=== PATIENT | female | born 2000 | race Caucasian/White ===

== ENCOUNTER 2024-02-29 19:21 | Inpatient (IN) ==
[2024-02-29] MEDS: SODIUM CHLORIDE 0.9% 1,000 ML IV STA (19:34)
[2024-02-29] MEDS: KETOROLAC TROMETHAMINE 15 MG/ML VIAL IV STA (20:30)
[2024-02-29] MEDS: MoRPHine SULFATE 4 MG/ML 1 ML CARP\\VIAL IV STA ×2 (20:30→21:30)
[2024-02-29] MEDS: ONDANSETRON INJ 2 MG/ML 2 ML VIAL IV STA (20:30)
[2024-02-29 20:32] LABS: Basophils # (auto) 0.06 K/uL (0.00-0.20); Basophils % (auto) 0.4 %; Eosinophils # (auto) 0.03 K/uL (0.00-0.50); Eosinophils % (auto) 0.2 %; Hematocrit (blood only) 40.9 % (37.0-47.0); Hemoglobin 13.9 g/dl (12.0-16.0); Immature Granulocytes # (auto) 0.06 K/uL (0.01-0.20); Immature Granulocytes % (auto) 0.4 %; Lymphocytes # (auto) 3.27 K/uL (1.20-3.40); Lymphocytes % (auto) 20.3 %; Mean Corpuscular Hemoglobin 30.4 pg (25.0-34.0); Mean Corpuscular Volume 89.5 fL (80.0-100.0); Mean Platelet Volume 10.5 fL (9.4-12.4); Monocytes # (auto) 1.06 K/uL (0.11-0.59); Monocytes % (auto) 6.6 %; Neutrophils # (auto) 11.62 K/uL (1.40-6.50); Neutrophils % (auto) 72.1 %; Platelet Count 391 K/uL (130-400); RDW Coefficient of Variation 12.1 % (11.5-14.5); RDW Standard Deviation 39.6 fL (36.4-46.3); Red Blood Count 4.57 M/uL (4.20-5.40)
--- NOTE | 2024-02-29 20:34 | Emergency Department Note ---
History of Present Illness General Chief complaint: Kidney Stone Stated complaint: KIDNEY STONE, LT FLANK/BACK PAIN Time Seen by Provider: 02/29/24 20:11 History of Present Illness Maximum Pain Intensity: 7 NAME: KYA VEGAS AGE: 23 SEX: F : 2000 ARRIVES VIA: Walk-In INFORMANT: Patient ED PROVIDER(S): CORNELIUS Marte, Vaughn Brown, The patient is a pleasant well-appearing 23-year-old female who arrives to the emergency department for evaluation of left flank pain. She reports Thursday she felt as if she had a UTI with painful urination. She reports she went to her doctor, and was provided Macrobid and Pyridium. She reports she began taking the medications, however today the flank pain worsened. She states she does have a history of kidney stones, and believes she is attempting to pass 1 at this time. She reports the pain went from her left flank into her low back and radiated into her left groin. She denies any vomiting or fevers, her vital signs are currently stable. Home Medications Medication Instructions Recorded Confirmed Type albuterol sulfate 90 mcg/actuation 2 inh inhalation Q6H PRN 06/30/23 08/13/23 History breath activated powder inhaler escitalopram oxalate 10 mg tablet 10 mg PO DAILY 06/30/23 08/13/23 History levonorgestrel 21 mcg/24 hr (up to intrauterine 06/30/23 08/13/23 History 8 years) 52 mg intrauterine device (Mirena) Allergies Allergy/AdvReac Type Severity Reaction Status Date / Time No Known Allergies Allergy Verified 08/13/23 07:21 Past Med/Surg History Problem List (Updated 02/29/24 @ 23:25 by CORNELIUS Covarrubias) Urinary tract obstruction by kidney stone (Acute) Hydroureteronephrosis (Acute) UTI (urinary tract infection) (Acute) JOSIAH positive Medical History Anxiety PCOS (polycystic ovarian syndrome) Renal calculi Celiac disease Surgical History Ovarian torsion History of bilateral breast reduction surgery Family History Other Nabil-Danlos syndrome Social History Smoking Status: Never smoker Preferred Language: Irish Feels Safe at Home: Yes Physical Exam Vital Signs Vital Signs - 24 hr 02/29/24 19:27 02/29/24 20:51 02/29/24 21:35 Temperature 36.3 C L Temperature Source Temporal Artery Scan Pulse Rate 93 H 81 Pulse Rate [Right Finger] 93 H Pulse Rhythm Regular Pulse Rhythm [Right Finger] Regular Pulse Strength [Right Finger] Normal Respiratory Rate 18 18 Respiratory Effort / Characteristics Non-Labored Spontaneous Non-Labored Respiratory Depth Normal Normal Respiratory Pattern Regular Regular Blood Pressure 154/88 H Blood Pressure [Right Arm] 142/96 H Blood Pressure Mean 110 Blood Pressure Mean [Right Arm] 111 Blood Pressure Position [Right Arm] Sitting Pulse Oximetry 95 98 98 Oxygen Delivery Method Room Air Room Air Room Air Sepsis Recent Fever Within 48 Hours No Sepsis New/Unexplained Change in Mental Status No Sepsis Action Taken by Nursing No Action Required VITALS: Vitals are noted on the nurse's note and reviewed by myself. Vital signs stable. GENERAL: 23-year-old female, in no acute distress, nondiaphoretic, well- developed well-nourished. SKIN: The skin was without rashes, erythema, edema, or bruising. HEAD: Normocephalic atraumatic. HEART: Regular rate and rhythm without murmurs gallops or rubs. LUNGS: Clear to auscultation bilaterally without wheezes, rales or rhonchi. No retractions or accessory muscle use. ABDOMEN: Positive bowel sounds x 4. Soft, tender to palpation left lower quadrant, left CVA tenderness. MUSCULOSKELETAL: No muscle atrophy, erythema, or edema noted. Full range of motion without joint tenderness in all extremities. No tenderness to palpation. Normal gait. Strength 5/5 throughout. NEURO: Patient was alert and oriented to person place and time. No focal neurological deficits. Course Administered Medications Ceftriaxone Sodium (Rocephin) 1,000 mg in 50 mls @ 100 mls/hr IV NOW STA Stop: 02/29/24 23:24 Last Admin: 02/29/24 23:03 Dose: 100 mls/hr Documented By: KMF Discontinued Medications Sodium Chloride (Nss) 1,000 mls @ 999 mls/hr IV .Q1H1M STA Stop: 02/29/24 21:14 Last Infusion: 02/29/24 20:34 Dose: Infused [place] [facility] [place]: 02/29/24 19:34 Dose: 999 mls/hr [place]ed [place] [facility] [place] Sodium Chloride (Nss) 1,000 mls @ 999 mls/hr IV .Q1H1M ONE Stop: 02/29/24 21:22 Last Infusion: 02/29/24 21:46 Dose: Infused [place] [facility] [place]: 02/29/24 20:37 Dose: 999 mls/hr [place]ed By[place] [facility] [place] Ioversol (Optiray 320 100ml) 93 ml IV ONCE ONE Stop: 02/29/24 21:16 Last Admin: 02/29/24 21:16 Dose: 93 ml Documented By: Celeste Ketorolac Tromethamine (Ketorolac Tromethamine 15 Mg/Ml Vial) 10 mg IV NOW STA Stop: 02/29/24 20:15 Last Admin: 02/29/24 20:30 Dose: 10 mg [place]ed By[place] [facility] [place]ine Sulfate (Morphine Sulfate 4 Mg/Ml 1 Ml Carp\Vial) 4 mg IV NOW STA Stop: 02/29/24 20:22 Last Admin: 02/29/24 20:30 Dose: 4 mg [place]ed [place] [facility] [place]ine Sulfate (Morphine Sulfate 4 Mg/Ml 1 Ml Carp\Vial) 4 mg IV NOW STA Stop: 02/29/24 21:27 Last Admin: 02/29/24 21:30 Dose: 4 mg Documented By: [facility] [place] Ondansetron HCl (Ondansetron Inj 2 Mg/Ml 2 Ml Vial) 4 mg IV NOW STA Stop: 02/29/24 20:15 Last Admin: 02/29/24 20:30 Dose: 4 mg Documented By: [facility] [place] Decision Making Differential Diagnosis Appendicitis, ovarian cyst, ovarian torsion, ectopic , TOA, PID, infections, diverticulitis, UTI, obstruction, mesenteric ischemia, aortic pathology, inflammatory bowel disease, renal colic, PUD, pancreatitis, biliary pathology, hernia, volvulus, constipation, as well as other pathologies. Medical Records Attestation: I reviewed the patient's medical records. Home Medications Current Medication List: was personally reviewed by me Laboratory Data Attestation: I reviewed the patient's lab results. CBC shows leukocytosis, 16.10, stable hemoglobin and hematocrit, CMP is unremarkable, lipase negative, hCG negative, initial urinalysis contaminated, repeat shows positive infection. 02/29/24 19:44 02/29/24 19:44 Lab Results 02/29/24 02/29/24 02/29/24 Range/Units 19:44 19:47 21:58 WBC 16.10 H (4.8-10.8) K/ul RBC 4.57 (4.20-5.40) M/uL Hgb 13.9 (12.0-16.0) g/dl Hct 40.9 (37.0-47.0) % MCV 89.5 (80.0-100.0) fL MCH 30.4 (25.0-34.0) pg MCHC 34.0 (32.0-36.0) g/dL RDW Std Deviation 39.6 (36.4-46.3) fL RDW Coeff of Cosmo 12.1 (11.5-14.5) % Plt Count 391 (130-400) K/uL MPV 10.5 (9.4-12.4) fL Immature Gran % (Auto) 0.4 % Neut % (Auto) 72.1 % Lymph % (Auto) 20.3 % [place] % (Auto) 6.6 % Eos % (Auto) 0.2 % Baso % (Auto) 0.4 % Neut # (Auto) 11.62 H (1.40-6.50) K/uL Lymph # (Auto) 3.27 (1.20-3.40) K/uL [place] # (Auto) 1.06 H (0.11-0.59) K/uL Eos # (Auto) 0.03 (0.00-0.50) K/uL Baso # (Auto) 0.06 (0.00-0.20) K/uL Immature Gran # (Auto) 0.06 (0.01-0.20) K/uL Sodium 135 L (136-145) mmol/L Potassium 4.1 (3.5-5.1) mmol/L Chloride 103 (98-107) mmol/L Carbon Dioxide 22 (21-32) mmol/L Anion Gap 10 (3-11) BUN 11 (6-23) mg/dl Creatinine 1.15 (0.6-1.2) mg/dl Est Cr Clr Drug Dosing 74.3 ml/min Est GFR ( Amer) 76.6 ml/min Est GFR (Non-Af Amer) 66.1 ml/min BUN/Creatinine Ratio 9.6 L (10-20) Glucose 93 (70-99(Fasting)) mg/dl Calcium 9.6 (8.6-10.3) mg/dl Total Bilirubin 0.2 (0.2-1.0) mg/dl AST 19 (13-39) U/L ALT 25 (7-52) U/L Alkaline Phosphatase 75 (34-104) U/L Total Protein 7.6 (6.0-8.3) gm/dl Albumin 4.5 (3.4-5.0) gm/dl Globulin 3.1 (2.5-4.0) gm/dl Albumin/Globulin Ratio 1.5 (0.9-2) Lipase 15 (11-82) U/L HCG, Qual Negative (Negative) Urine Color See Comment Dark Yellow Urine Appearance Clear Clear (Clear) Urine pH Not Reportable 6.5 Ur Specific [place] 1.020 1.025 (1.000-1.030) Urine Protein Not Reportable Negative Urine Glucose (UA) Not Reportable Negative Urine Ketones Not Reportable Trace H Urine Blood Not Reportable Trace H Urine Nitrite Not Reportable Positive A Urine Bilirubin Not Reportable Negative Urine Urobilinogen Not Reportable Negative Ur Leukocyte Esterase Not Reportable Negative Urine WBC (Auto) 0-5 (0-5) /hpf Urine RBC (Auto) 0-2 (0-2) /hpf U Hyaline Cast (Auto) 0-2 (0-2) /lpf U Epithel Cells (Auto) 0-2 (0-2) /hpf Urine Bacteria (Auto) 1+ H (None Seen) Urine RBC 11-20 H (0-2) /hpf Urine WBC 6-10 H (0-5) /hpf Ur Epithelial Cells 11-20 H (0-2) /hpf Urine Bacteria 1+ H (None Seen) Imaging Data Radiologist's Impression: Abdomen/Pelvis CT 02/29/24 20:14 Exam(s): CT ABDOMEN + PELVIS With Contrast IV Amt: 93 ML OPTIRAY 320 EXAM: CT Abdomen and Pelvis With Intravenous Contrast CLINICAL HISTORY: Reason for exam: flank pain. TECHNIQUE: Axial computed tomography images of the abdomen and pelvis with intravenous contrast. CTDI is 28.03 mGy and DLP is 1409 mGy-cm. Automated exposure control was utilized for the study. A dose lowering technique was utilized adhering to the principles of ALARA. CONTRAST: Patient received 93 ML OPTIRAY 320 of IV contrast COMPARISON: No relevant prior studies available. FINDINGS: Lung bases: Unremarkable. No mass. No consolidation. ABDOMEN: Liver: Unremarkable. No mass. Gallbladder and bile ducts: Unremarkable. No calcified stones. No ductal dilation. Pancreas: Unremarkable. No mass. No ductal dilation. Spleen: Unremarkable. No splenomegaly. Adrenals: Unremarkable. No mass. Kidneys and ureters: Obstructing 4 mm left UVJ stone causing mild upstream hydroureteronephrosis. Right kidney and collecting system are normal. Stomach and bowel: Unremarkable. No obstruction. No mucosal thickening. PELVIS: Appendix: Normal appendix. Bladder: Unremarkable. No mass. Reproductive: IUD in the uterus. ABDOMEN and PELVIS: Intraperitoneal space: Unremarkable. No free air, significant free fluid, or fluid collection. Bones/joints: No acute fracture. No dislocation. Soft tissues: Unremarkable. Vasculature: Unremarkable. No abdominal aortic aneurysm. Lymph nodes: Unremarkable. No enlarged lymph nodes. IMPRESSION: Obstructing 4 mm left UVJ stone causing mild upstream hydroureteronephrosis. Electronically signed by: Richard Jasmine M.D. 02/29/24 23:16 PM Blood Pressure Blood Pressure Findings: Elevated blood pressure Blood Pressure Disposition: elevated BP felt to be situational MDM Narrative The patient is a pleasant well-appearing 23-year-old female who arrives to the emergency department for the above-stated complaint. Upon examination the patient appears to be passing a kidney stone based on symptoms and history. A saline lock was established, CBC, CMP, lipase, hCG, urinalysis were obtained. CBC shows leukocytosis, 16.10, stable hemoglobin and hematocrit, CMP is unremarkable, lipase negative, hCG negative, initial urinalysis contaminated, repeat shows positive infection. CT imaging of the abdomen and pelvis with IV contrast shows an obstructing 4 mm left UVJ stone causing mild upstream hydroureteronephrosis. The patient was provided 2 L of normal saline, 2 doses of IV morphine, 1 dose of IV Toradol, and 1 dose of IV Zofran. She reported a significant reduction in symptoms after medication. The patient was provided 1 g of IV Rocephin. I then consulted Dr. Burris from urology who recommended IV fluids, and if the patient does not pass the stone she may require a stent. Case management was notified of the need for admission who facilitated contact with the [facility] hospitalist group. Dr. Steele agreed to accept the patient for admission, please refer to his documentation for further patient workup and care. Impression & Plan UTI (urinary tract infection), Hydroureteronephrosis, Urinary tract obstruction by kidney stone Discharge Plan Visit Data Chief Complaint: Kidney Stone Stated Complaint: KIDNEY STONE, LT FLANK/BACK PAIN ED Provider: Vaughn Brown ED Midlevel Provider: Kelli Hickey Discharge Problem: UTI (urinary tract infection), Hydroureteronephrosis, Urinary tract obstruction by kidney stone Forms Stand Alone Forms: My [facility] Prescriptions Prescriptions: No Action albuterol sulfate 90 mcg/actuation aerosol powdr breath activated 2 inh inhalation Q6H PRN escitalopram oxalate 10 mg tablet 10 mg PO DAILY Mirena 21 mcg/24 hours (8 yrs) 52 mg intrauterine device intrauterine Referrals Referrals: [facility] [Primary Care Provider] - Discharge Problem: UTI (urinary tract infection) Qualifiers: Urinary tract infection type: site unspecified Hematuria presence: with hematuria Qualified Code(s): N39.0 - Urinary tract infection, site not specified ; R31.9 - Hematuria, unspecified
[2024-02-29] MEDS: SODIUM CHLORIDE 0.9% 1,000 ML IV ONE (20:37)
[2024-02-29 20:47] LABS: Albumin Globulin Ratio 1.5 (0.9-2); Albumin Level 4.5 gm/dl (3.4-5.0); BUN Creatinine Ratio 9.6 (10-20); Bilirubin,Total 0.2 mg/dl (0.2-1.0); Calcium 9.6 mg/dl (8.6-10.3); Creatinine Clr Calc Pharmacy 74.3 ml/min; Est GFR (African American) 76.6 ml/min; Est GFR (Non-African American) 66.1 ml/min; Globulin 3.1 gm/dl (2.5-4.0); Potassium 4.1 mmol/L (3.5-5.1); Total Protein 7.6 gm/dl (6.0-8.3)
[2024-02-29 20:51] LABS: Appearance Urine Clear (Clear)
[2024-02-29 20:52] LABS: Pregnancy Test, Serum Negative (Negative)
[2024-02-29 20:58] LABS: Bacteria Urine 1+ (None Seen)
[2024-02-29] MEDS: OPTIRAY 320 100ml IV ONE (21:16)
[2024-02-29 22:25] LABS: Appearance Urine Clear (Clear); Bilirubin Urine Negative (Negative); Blood Urine Trace (Negative); Cast Urine Automated 0-2 /lpf (0-2); Color Urine Dark Yellow; Epithelial Cell Urine Auto 0-2 /hpf (0-2); Glucose Urine UA Negative (Negative); Ketones Urine Trace (Negative); Leukocyte Esterase Urine Negative (Negative); Nitrite Urine Positive (Negative); Protein Urine Negative (Negative); RBC Urine Automated 0-2 /hpf (0-2); Specific Gravity Urine 1.025 (1.000-1.030); Urobilinogen Urine Negative (Negative); WBC Urine Automated 0-5 /hpf (0-5); pH Urine 6.5 (4.5-7.5)
[2024-02-29 22:53] LABS: Bacteria Urine Automated 1+ (None Seen)
[2024-02-29] MEDS: cefTRIAXone SODIUM 1,000 MG/50 ML BAG IV STA (23:03)
--- NOTE | 2024-02-29 23:16 | CT Scan Report ---
Exam(s): CT ABDOMEN + PELVIS With Contrast IV Amt: 93 ML OPTIRAY 320 EXAM: CT Abdomen and Pelvis With Intravenous Contrast CLINICAL HISTORY: Reason for exam: flank pain. TECHNIQUE: Axial computed tomography images of the abdomen and pelvis with intravenous contrast. CTDI is 28.03 mGy and DLP is 1409 mGy-cm. Automated exposure control was utilized for the study. A dose lowering technique was utilized adhering to the principles of ALARA. CONTRAST: Patient received 93 ML OPTIRAY 320 of IV contrast COMPARISON: No relevant prior studies available. FINDINGS: Lung bases: Unremarkable. No mass. No consolidation. ABDOMEN: Liver: Unremarkable. No mass. Gallbladder and bile ducts: Unremarkable. No calcified stones. No ductal dilation. Pancreas: Unremarkable. No mass. No ductal dilation. Spleen: Unremarkable. No splenomegaly. Adrenals: Unremarkable. No mass. Kidneys and ureters: Obstructing 4 mm left UVJ stone causing mild upstream hydroureteronephrosis. Right kidney and collecting system are normal. Stomach and bowel: Unremarkable. No obstruction. No mucosal thickening. PELVIS: Appendix: Normal appendix. Bladder: Unremarkable. No mass. Reproductive: IUD in the uterus. ABDOMEN and PELVIS: Intraperitoneal space: Unremarkable. No free air, significant free fluid, or fluid collection. Bones/joints: No acute fracture. No dislocation. Soft tissues: Unremarkable. Vasculature: Unremarkable. No abdominal aortic aneurysm. Lymph nodes: Unremarkable. No enlarged lymph nodes. IMPRESSION: Obstructing 4 mm left UVJ stone causing mild upstream hydroureteronephrosis. Electronically signed by: Richard Jasmine M.D. 02/29/24 23:16 PM
--- NOTE | 2024-02-29 23:26 | History & Physical Report ---
Date of Service February 29, 2024 Assessment & Plan (1) Hydroureteronephrosis: Plan: Pt is a 23 yo female with PMH of asthma, PCOS, celiac disease, and anxiety presenting to the ER d/t flank pain. Left hydroureteronephrosis secondary to obstructing nephrolithiasis - pt with hx of kidney stones requiring stent placement - CTAP showed 4mm obstructing left UVJ stone; ordered one dose of tamsulosin 0.4mg to help facilitate passage - s/p ceftriaxone x1 given in ER; will continue upon admission - pain control; tylenol 650mg q6hr PRN, toradol 15mg q6hr PRN, dilaudid 0.5mg q6hr for breakthrough pain - nausea control; zofran PRN - consulted urology d/t pt's hx of needing stent placement for stone removal - strain all urine for stone to send for analysis UTI in the setting of nephrolithiasis - WBC on admission elevated to 16.1, pt tachycardic in the 90s upon arrival meeting SIRS/sepsis criteria - s/p 2L of NS bolus in the ER; will give another 500cc to complete sepsis fluids and continue hydration with NS 150mL/hr - urine culture pending - plan as above Anxiety - continue home escitalopram 10 mg daily Diet: NPO pending uro eval; IVF with NS at 150 mL/hr Code: full VTE ppx: defer- pt low risk Dispo: admit to med/surg (2) UTI (urinary tract infection): (3) Anxiety: History of Present Illness Chief Complaint: flank pain Primary Care Provider: [facility] Pt is a 23 yo female with PMH of asthma, PCOS, celiac disease, and anxiety presenting to the ER d/t flank pain. Pt notes she had UTI symptoms that began on Thursday with pelvic pressure and pain with urination. These symptoms continued until Thursday when she also developed urinary frequency. Today, she noted some left sided back and groin pain which prompted her to seek care at [facility]. She was prescribed nitrofurantoin and pyridium for a presumed UTI. In the hours after being assessed at [facility], her abdominal/groin pain worsened to the point of needing to seek care at the ER. She notes she has a hx of kidney stones ~6-7 years ago. At that time, she had multiple (upwards of possibly 12 but pt unsure of exact number and size) right sided kidney stones which required stent placement. She has not had any symptomatic kidney stones since. No one else in her family has issues with kidney stones. In the ER, pt was given 2L NS, 10 mg toradol, 4 mg zofran, 4mg morphine x2, and ceftriaxone x1. Allergies Allergy/AdvReac Type Severity Reaction Status Date / Time No Known Allergies Allergy Verified 02/29/24 23:40 Home Medications Medication Instructions Recorded Confirmed Type albuterol sulfate 90 mcg/actuation 2 inh inhalation Q6H PRN Shortness 06/30/23 02/29/24 History breath activated powder inhaler Of Breath Or Wheezing escitalopram oxalate 10 mg tablet 10 mg PO DAILY 06/30/23 02/29/24 History levonorgestrel 21 mcg/24 hr (up to 21 mcg intrauterine DIRECTED 06/30/23 02/29/24 History 8 years) 52 mg intrauterine device (Mirena) nitrofurantoin 100 mg PO .BID FOR 5 DAYS 02/29/24 02/29/24 History monohydrate/macrocrystals 100 mg capsule phenazopyridine 200 mg tablet 4 mg PO .TID FOR 3 DAYS 02/29/24 02/29/24 History Past Med/Surg History Problem List (Updated 02/29/24 @ 23:25 by CORNELIUS Covarrubias) Urinary tract obstruction by kidney stone (Acute) Hydroureteronephrosis (Acute) UTI (urinary tract infection) (Acute) JOSIAH positive Medical History Anxiety PCOS (polycystic ovarian syndrome) Renal calculi Celiac disease Surgical History Ovarian torsion History of bilateral breast reduction surgery Family History Other Nabil-Danlos syndrome Social History Smoking Status: Never smoker Hx Alcohol Use: Yes Hx Substance Use: No Preferred Language: Lithuanian Communication Ability: Effective Strategic Partner Development Manager Required: No Beliefs That Will Affect Care: None Current Living Situation: Alone Other Information That Helps Us Care for You: No Feels Safe at Home: Yes Assistive Devices: Glasses Review of Systems Review of Systems: As per HPI Physical Exam Constitutional: NAD, vitals WNL. Eyes: Conjunctivae normal. Respiratory: CTA bilaterally. Non labored breathing. No rhonchi, wheezing, or crackles. Cardiovascular: RRR. No murmurs noted. No LE edema. Gastrointestinal (Abdomen): Tender in LLQ upon palpation. No masses noted. Skin: No rashes or skin lesions noted. Neurologic: Sensation grossly intact. No FND appreciated. Psychiatric: Speech of normal pace and content. Mood and affect congruent. Results & Data Results & Data Vital Signs (Past 12 Hours) Vital Signs Temp Pulse Pulse Resp BP BP Pulse Ox 02/29/24 21:35 93 H 18 142/96 H 98 02/29/24 20:51 81 98 02/29/24 19:27 36.3 C L 93 H 18 154/88 H 95 O2 Del Method 02/29/24 21:35 Room Air 02/29/24 20:51 Room Air 02/29/24 19:27 Room Air Supervising Physician Co-Signing Physician Notes Attending addendum: I have physically seen this patient, have supervised the medical residents activities, and agree with the H&P unless as otherwise noted. Assessment and Plan: 4 mm left UVJ stone/left mild hydroureteronephrosis- Follow urine culture and sensitivity Ceftriaxone 2 g IV daily Acetaminophen 650 mg by mouth every 6 hours as needed for mild pain or fever Toradol 15 mg IV every 6 hours as needed for moderate pain Dilaudid 0.5 mg IV every 6 hours as needed for severe pain Status post 2 L normal saline bolus in ED Give an additional 500 mL normal saline bolus Maintenance IV fluids NSS at 150 mL/h Consult urology Anxiety- Continue escitalopram 10 mg daily Celiac disease- Resume appropriate diet okay which is able to take p.o. Asthma- Albuterol sulfate as needed JOSIAH positive- Mother with history of lupus Patient has been seen by rheumatology, and given no additional diagnosis Resident Activity Tracking Resident Involvement: Resident Care Provided Care Provided: Adult Hospital Medicine (2) UTI (urinary tract infection) Hematuria presence: with hematuria Urinary tract infection type: site unspecified Qualified Code(s): N39.0 - Urinary tract infection, site not specified; R31.9 - Hematuria, unspecified
[2024-03-01] MEDS ORDERED: ACETAMINOPHEN 325 MG TAB PO PRN (00:14)
[2024-03-01] MEDS ORDERED: POLYETHYLENE (MIRALAX) 17 GM PACK PO PRN (00:14)
[2024-03-01] MEDS: SODIUM CHLORIDE 0.9% 500 ML IV ONE (00:43)
[2024-03-01] MEDS: TAMSULOSIN HCL 0.4 MG CAP PO ONE (00:45)
[2024-03-01] MEDS: KETOROLAC TROMETHAMINE 15 MG/ML VIAL IV PRN (00:49)
[2024-03-01] MEDS: ONDANSETRON INJ 2 MG/ML 2 ML VIAL IV PRN (00:49)
[2024-03-01] MEDS: SODIUM CHLORIDE 0.9% 1,000 ML IV SCH (01:32)
[2024-03-01] MEDS ORDERED: ALBUTEROL HFA 8 GM INHALER INH PRN (02:31)
[2024-03-01] MEDS ORDERED: LEVONORGESTREL (MIRENA) IUD PV SCH (02:33)
[2024-03-01] MEDS: MELATONIN 3 MG TAB PO PRN (02:48)
--- NOTE | 2024-03-01 05:18 | Billing Data ---
Date of Service March 01, 2024 Coding Level of Care Code 12719 INT INP/OBS CARE
--- OUTSIDE RECORDS SUMMARY | 2024-03-01 06:07 | External Medical Summary | Summary of Care ---
Author Name Unknown Organization [facility] Address [address] [place] [address] Phone [phone] Care Team Providers Care Chef Manager Name Role Phone Cyndi Nagy PA-C Primary Care Provid er Reason for Referral * Precert (Within 10 days (routine)) - Pending Review Specialty Diagnoses / Procedures Referred By Leann mehta Referred To Contact Cardiac Studies Diagnoses Nabil-Danlos syndrome Procedures ECHO, COMPLETE (2D), TRANS-THORACIC [facility] [place] [address] Referral ID Status Reason Start Date Expiration Date Visits Requested Visits Authorized [id number] Pending Review Precert 01/27/2024 999 999 Reason for Visit * Reason Comments NEW PATIENT Referred by Dhruv hernandez for " Abn labs, hypermobility" Encounter Details Date Type Department Care Team (Late st Contact Info) Description 01/27/2024 2:40 PM EDT Office Visit Rheumatology [address] [id number] [employer] [address] Brayden Lyons MD [facility] [place] [address] Nabil-Danlos, hypermobile type*; Nabil-Danlos syndrome; JOSIAH positive Allergies No known active allergiesdocumented as of this encounter (statuses as of 01/27/2024) Medications Medication Sig Dispensed Refills Start Date End Date Status ALPRAZolam 0.25 MG Oral Tablet (xaNAX) As needed Activ e Albuterol Sulfate HFA 108 (90 Base) MCG/ACT Inhalation Aerosol Solution As needed 04/02/2023 Active Escitalopram Oxalate 10 MG Oral Tablet (Lexapro) Take 1 Tablet by mouth in the morning. 1 daily. Active Mirena (52 MG) 20 MCG/DAY Intrauterine Intrauterine Device (Levonorgestrel) Take by intrauterine route. Active Vitamin D3 50 MCG (2000 UT) Oral Capsule Take 1 Capsule by mouth in the morning. 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 (Adult - for ages 18 years and over) Not on file 01/05/2024 Is your family able to pay t he heat, water, or electric bill? (Household - for ages 0-17 years) Not on file 01/05/2024 Does your family have access to good internet? (Household - for ages 0-17 years) Not on file 01/05/2024 Social Connections Answer Date Recorded How often do you feel lonely or isolated from those around you? (Adult - for ages 18 years and over) Not on file 01/05/2024 Sex and Gender Information Value Date Recorded Sex Assigned at Female 01/25/2024 11:07 AM EDT Gender Identity Female 01/25/2024 11:07 AM EDT Sexual Orientation Straight 01/25/2024 11 :07 AM EDT Job Start Date Occupation Industry Not on file Not on file Not on file documented as of this encounter Last Filed Vital Signs Vital Sign Reading Time Taken Comments Blood Pressure - - Pulse - - Temperature 36.6 C (97.8 F) 01/27/2024 2:56 PM ED T Respiratory Rate - - Oxygen Saturation - - Inhaled Oxygen Concentration - - Weight 91.2 kg (201 lb) 01/27/2024 2:56 PM EDT Height - - Body Mass Index - - documented in this encounter Progress Notes * Brayden Lyons MD - 01/27/2024 3:07 PM EDT Reason for visit: Rheumatology consultation for ? EDS, + JOSIAH Referring Provider: Cyndi Nagy PA-C HPI: Nishi Castillo is here at the request of Cyndi Nagy PA-C for further evaluation of + JOSIAH, ? EDS. Nishi Castillo pmhx is listed below. She reports that her mother wasdiagnosed with EDS and intracranial pressure (IIH) and is having issues with that. She did have genetic testing. This was done in [facility] recently. Initially was felt her mother had lupus but then diagnosed with EDS and IIH. She is here dealing biochemistry PhD and did some research on EDS in wanted to get seen to discuss genetic testing herself as it could have implications for her and her half sister. She reports that her maternal aunt has Sjogren's. She did have a positive JOSIAH last year and did see the other local steward/stewardess second in [facility] Dr. Bonner in July this year who did not feel she had any concerns for connective tissue disease. He did not recommend any repeat testing for the JOSIAH. She states the only recent she got the JOSIAH done was her mom was being worked up for possible lupus at the time and she told her daughters and go get tested as well. She had no symptoms concerning for lupus. She does report hyper mobile joints in multiple areas. She played high school basketball and did have multiple ankle injuries, she stated it was easy for her to roll her ankles. Shereports that her maternal aunt also had to have an aneurysm repair in her brain in her 30s. No family history of people dying at a young age from aneurysmal bleeds. She denies any cigarette paper thin scars. She does have celiac disease. She also has a history of PCOS with surgery for ovarian torsion. Musculoskeletal ROS: . Abnormal: joint pain and joint swelling . Pain scale (0-10): 0 Other ROS: . Constitutional: fatigue and trouble sleeping . Head normal . Eyes: normal . Ears, nose, throat, mouth: normal . Cardiovascular: normal . Respiratory: normal . Gastrointestinal: celiac . Genitourinary: PCOS . Skin: normal . Neurologic: normal All other ROS reviewed and negative Current Outpatient Medications Medication Sig Dispense Refill Albuterol Sulfate HFA 108 (90 Base) MCG/ACT Inhalation Aerosol Solution As needed Vitamin D3 50 MCG (2000 UT) Oral Capsule Take 1 Capsule by mouth in the morning. ALPRAZolam 0.25 MG Oral Tablet (xaNAX) As needed Escitalopram Oxalate 10 MG Oral Tablet (Lexapro) Take 1 Tablet by mouth in the morning. 1 daily. Mirena (52 MG) 20 MCG/DAY Intrauterine Intrauterine Device (Levonorgestrel) Take by intrauterine route. No current facility-administered medications for this visit. Past Medical History: Diagnosis Date JOSIAH positive PCOS (polycystic ovarian syndrome) Past Surgical History: Procedure Laterality Date NE DRAINAGE OVARIAN CYST UNI/BI SPX ABDOMINAL tacked ovaries - had torson corrected on right NE PRQ NEPHROSTOLITHOTOMY/PYELOSTOLITHOTOMY LESS THAN OR EQUAL TO 2 CM Right NE REDUCTION OF LARGE BREAST Bilateral Family History Problem Relation Name Age of Onset Thyroid Disorder Mother Other (EDS) Mother Other (intra cranial pressure) Mother No Known Problems Father No Known Problems Brother (Half) Other (endometreiosis) Sister (Half) Ulcerative colitis Sister (Half) Diabetes Sister (Half) Other (polycystic ovary) Sister (Half) Social History Social History Tobacco Use Smoking status: Never Smokeless tobacco: Never Substance Use Topics Alcohol use: Yes Drug use: Never Physical Exam Filed Vitals: 01/27/24 1456 Temp: 36.6 C (97.8 F) TempSrc: Infrared Weight: 91.2 kg (201 lb) General: alert, healthy, no distress, and well nourished HENT: normocephalic, external ears normal, no mucosal erythema, no mucosal edema, moist mucosa, no oral ulcers Eye Exam: PERRL, EOMI, conjunctiva are pink and non-injected, sclera clear Neck: supple, no adenopathy, thyroid normal size, non-tender, without nodularity Lymph: no palpable lymphadenopathy Heart: regular rate & rhythm and no gallops Lungs: clear to auscultation , no rales, wheezes or rhonchi Abdomen: abdomen soft, non-tender, and normal bowel sounds Extremities: no clubbing, no cyanosis Musculoskeletal Exam: She does have hypermobility noted at the knees, elbows, thumbs-has a Tanner hypermobility score of 6 at a 9 No synovitis of the hands or wrists noted No knee effusions Good range of motion both hips and shoulders Assessment (Q79.62) Nabil-Danlos, hypermobile type (primary encounter diagnosis) (Q79.60) Nabil-Danlos syndrome (R76.8) JOSIAH positive 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 Will also get her set up with a 2D echo. As for the history of positive JOSIAH, her history is not concerning for connective tissue disease and do not feel anyadditional testing as needed. This low positive JOSIAH is likely a false positive. Plan 1. Will contact genetics about testing 2. Reassurance given in regards to the positive JOSIAH-would not recheck an JOSIAH unless has signs or symptoms of a connective tissue disease. 3. 2D echo ordered 4. Thank you for the consult and involving me in this patient's care. 5. Copy of today's note to Cyndi PULIDO 6. Follow up in 1 yr Brayden Lyons MD Department of Rheumatology [facility] [phone] I spent a total of 40-54 minutes (exact time 50 mins) on the date of service in preparation, delivery, and documentation of the care provided to Nishi Castillo excluding any time spent in the performance of separately billed services. documented in this encounter Nursing Notes * Marjan Galloway LPN - 01/27/2024 2:52 PM EDT Chief Complaint Patient presents with NEW PATIENT Referred by Dhruv Nagy for " Abn labs, hypermobility" documented in this encounter Plan of Treatment Upcoming Encounters Date Type Department Care Team (Late st Contact Info) Description 02/17/2024 1:45 PM EDT Cardiac Studies Cardiac Studies [address] [place] [address] 01/27/2025 8:20 AM EDT Office Visit Rheumatology [address] [place] [address] Brayden Lyons MD [address] [facility] [place] [address] Scheduled Orders Name Type Priority Associated Diagnoses Orde r Schedule ECHO, COMPLETE (2D), TRANS-THORACIC Echocardiology Routine Nabil-Danlos syndrome Expected: 01/27/2024, Expires: 02/26/2026 Health Maintenance Due Date Last Done Comments Depression Screening 2010 HIV Screening 2013 HPV (Gardasil) Vaccine (1 - 3-dose series) 2013 Hepatitis C Screening 2016 DTaP,Tdap,and Td Vaccines (1 - Tdap) 2017 Hepatitis B Vaccine (1 of 3 - 19+ 3-dose series) 2017 Pap Smear 2019 COVID-19 Vaccine (2 - 2022-2 4 season) 2023 05/14/2022 Influenza Vaccine (FLU shot) (#1) 2024 MENINGOCOCCAL (MENACTRA/MENVEO) Aged Out No longer eligible based on patient's age to complete this topic Pneumococcal Vaccine: Pediat rics (0 to 5 Years) and At-Risk Patients (6 to 64 Years) Aged Out No longer eligi ble based on patient's age to complete this topic documented as of this encounter Medical Devices Not on filedocumented as of this encounter Visit Diagnoses Diagnosis Nabil-Danlos, hypermobile type- Primary Nabil-Danlos syndrome JOSIAH positive Other and unspecified nonspecific immunological findings documented in this encounter Care Teams Chef Manager Relationship Specialty Start Date End Date Cyndi Nagy PA-C [address] [id number] PCP - General Physician Chronic Care Nurse 01/27/24 documented as of this encounter
[2024-03-01 08:22] LABS: Hematocrit (blood only) 36.9 % (37.0-47.0); Hemoglobin 12.5 g/dl (12.0-16.0); Mean Corpuscular Hemoglobin 30.6 pg (25.0-34.0); Mean Corpuscular Hgb Conc 33.9 g/dL (32.0-36.0); Mean Corpuscular Volume 90.2 fL (80.0-100.0); Mean Platelet Volume 10.3 fL (9.4-12.4); Platelet Count 325 K/uL (130-400); RDW Coefficient of Variation 12.1 % (11.5-14.5); RDW Standard Deviation 39.8 fL (36.4-46.3); Red Blood Count 4.09 M/uL (4.20-5.40); White Blood Count 15.54 K/ul (4.8-10.8)
--- NOTE | 2024-03-01 08:51 | Urology Consultation ---
Date of Consultation March 01, 2024 Assessment & Plan (1) Urinary tract obstruction by kidney stone: (2) Hydroureteronephrosis: (3) UTI (urinary tract infection): 23-year-old female admitted for left flank pain secondary to an obstructing left UVJ stone and suspicion of UTI She is afebrile and hemodynamically stable Labs today reviewedWBC downtrending (now 15.54), creatinine pending Urinalysis with suspicion of UTI Urine culture is pending Continue broad-spectrum antibiotics and narrow per sensitivity data when available Reviewed and discussed options for stone management including trial of passage versus surgical intervention today with left ureteral stent placement and possible stone treatment Ureteral stents were discussed in detail After discussion, she wishes to proceed with surgical intervention today Proceed to OR for cystoscopy and left ureteral stent placement, possible left ureteronephroscopy, stone basket extraction and laser lithotripsy depending on findings Risks and benefits of surgery to be reviewed with patient by Dr. Higgins prior to surgery Continue with scheduled antibiotics preoperatively Keep n.p.o. for procedure Continue to strain urine Continue supportive care, antibiotics and medical management per hospital medicine service History of Present Illness Attending Physician: Kailash Evans MD History of Present Illness This is a 23-year-old female with past medical history of asthma, PCOS, celiac disease, and nephrolithiasis who presented to the emergency department on 02/29/2024 for evaluation of worsening left flank pain and urinary symptoms. She recently developed dysuria and was started on antibiotics by her PCP for suspected UTI. On arrival to ED, she was afebrile and hemodynamically stable. Lab work showed sodium 135, creatinine 1.15, WBC 16.1, hemoglobin 13.9. hCG negative. Urinalysis was positive for nitrates and 1+ bacteria. Workup included CT abdomen pelvis which demonstrated an obstructing 4 mm left UVJ stone causing mild upstream hydroureteronephrosis. She was treated with IV fluids, ceftriaxone, morphine, Toradol and Zofran in the ED. She was admitted to the hospital medicine service for left ureteral stone and UTI. Patient seen and examined at bedside this morning. She denies stone passage overnight. She continues to have intermittent flank discomfort, but notes she is feeling much better since arrival. She notes occasional nausea, no vomiting. No fever or chills. She reports mild dysuria. She has been n.p.o. since midnight. She reports prior history of kidney stones and prior intervention with stent placement in 2019 at home. Allergies Allergy/AdvReac Type Severity Reaction Status Date / Time No Known Allergies Allergy Verified 02/29/24 23:40 Home Medications Medication Instructions Recorded Confirmed Type albuterol sulfate 90 mcg/actuation 2 inh inhalation Q6H PRN Shortness 06/30/23 02/29/24 History breath activated powder inhaler Of Breath Or Wheezing escitalopram oxalate 10 mg tablet 10 mg PO DAILY 06/30/23 02/29/24 History levonorgestrel 21 mcg/24 hr (up to 21 mcg intrauterine DIRECTED 06/30/23 02/29/24 History 8 years) 52 mg intrauterine device (Mirena) nitrofurantoin 100 mg PO .BID FOR 5 DAYS 02/29/24 02/29/24 History monohydrate/macrocrystals 100 mg capsule phenazopyridine 200 mg tablet 4 mg PO .TID FOR 3 DAYS 02/29/24 02/29/24 History Patient History Medical History Anxiety PCOS (polycystic ovarian syndrome) Renal calculi Celiac disease Surgical History Ovarian torsion History of bilateral breast reduction surgery Family History Other Nabil-Danlos syndrome Social History Smoking Status: Never smoker Hx Alcohol Use: Yes Hx Substance Use: No Preferred Language: Liberian Communication Ability: Effective Barrel Cooper Required: No Beliefs That Will Affect Care: None Current Living Situation: Alone Other Information That Helps Us Care for You: No Feels Safe at Home: Yes Assistive Devices: Glasses Review of Systems Review of Systems: All systems reviewed & are unremarkable except as noted in HPI & below Physical Exam Constitutional: well developed and well nourished; no acute distress Respiratory: normal respiratory effort; no respiratory distress and no labored breathing Gastrointestinal (Abdomen): Inspection/Auscultation: abdomen normal to inspection Musculoskeletal: Head/Neck/Chest: normocephalic Neurologic: moves all extremities and awake Psychiatric: Orientation: alert and oriented x 3 Results & Data Vital Signs (Past 12 Hours) Vital Signs Temp Pulse Pulse Resp BP Pulse Ox O2 Del Method 03/01/24 07:00 36.6 C 73 20 111/69 97 Room Air 03/01/24 02:56 36.7 C 68 18 144/95 H 97 Room Air 03/01/24 02:39 36.7 C 68 18 144/95 H 97 Room Air 03/01/24 02:00 73 16 147/96 H 95 Room Air 03/01/24 00:12 71 16 141/95 H 99 Room Air 02/29/24 23:10 78 18 97 Room Air 02/29/24 21:35 93 H 18 142/96 H 98 Room Air 02/29/24 20:51 81 98 Room Air PG Care Time/CCT Total # of Minutes Spent Total Time Spent with Patient: Total time spent is greater than 50% in coordination of care (as documented) at patient's floor/unit and/or counseling patient: Coding Level of Care Code 67126 IN/OBS CONSULT LVL 4,60M Diagnoses Urinary tract obstruction by kidney stone N20.0; N13.8 Hydroureteronephrosis N13.30 UTI (urinary tract infection) N39.0; R31.9 Hematuria presence: with hematuria Urinary tract infection type: site unspecified (3) UTI (urinary tract infection) Hematuria presence: with hematuria Urinary tract infection type: site unspecified Qualified Code(s): N39.0 - Urinary tract infection, site not specified; R31.9 - Hematuria, unspecified
[2024-03-01 08:55] LABS: BUN Creatinine Ratio 7.9 (10-20); Calcium 7.8 mg/dl (8.6-10.3); Creatinine Clr Calc Pharmacy 100.6 ml/min; Est GFR (African American) 104.4 ml/min; Est GFR (Non-African American) 90.1 ml/min
--- NOTE | 2024-03-01 12:05 | Hospitalist Progress Note ---
Date of Service March 01, 2024 Assessment & Plan (1) Hydroureteronephrosis: Plan: Pt is a 23 yo female with PMH of asthma, PCOS, celiac disease, and anxiety presenting to the ER d/t flank pain. Left hydroureteronephrosis secondary to obstructing nephrolithiasis - pt with hx of kidney stones requiring stent placement - CTAP showed 4mm obstructing left UVJ stone; ordered one dose of tamsulosin 0.4mg to help facilitate passage - pain control; PRN tylenol, toradol and dilaudid - consulted urology - continue abx - plan for OR today - strain all urine for stone to send for analysis UTI in the setting of nephrolithiasis - WBC on admission elevated to 16.1, pt tachycardic in the 90s upon arrival meeting SIRS/sepsis criteria - s/p sepsis fluid bolus - continue Ceftriaxone - urine culture pending (2) UTI (urinary tract infection): Plan Chronic stable medical conditions: * anxiety - continue lexapro Diet: NPO; IVF with NS at 150 mL/hr VTE ppx: defer- pt low risk Dispo: continued inpatient stay awaiting stent placement Admission and Anticipated Discharge Date Admission Date: March 01, 2024 Supervising Physician Co-Signing Physician Notes Attending Attestation - Chart reviewed, care plan d/w [place] Schultz. I agree w/ the montesinos components of her documentation. Kailash Evans MD Subjective PAtient seen resting in bed before OR procedure. pain well controlled, feels very similar to previous incident of kidney stones. has not noticed blood in urine but has been taking Pyridium Review of Systems Review of Systems: All systems reviewed & are unremarkable except as noted in Subjective Physical Exam Physical Exam: General: NAD, VS as above Resp: normal respiratory effort, lungs clear to auscultation CV: RRR, no murmur, Abd: soft, normal bowel sounds, non tender, no hepatosplenomegaly Extremities: Moves all extremities, no edema Neuro: A&O x3, Skin: intact, no lesions noted Results & Data Results & Data Vital Signs (Past 12 Hours) Vital Signs Temp Pulse Resp BP Pulse Ox O2 Del Method 03/01/24 07:00 36.6 C 73 20 111/69 97 Room Air 03/01/24 02:56 36.7 C 68 18 144/95 H 97 Room Air 03/01/24 02:39 36.7 C 68 18 144/95 H 97 Room Air 03/01/24 02:00 73 16 147/96 H 95 Room Air 03/01/24 00:12 71 16 141/95 H 99 Room Air Laboratory Results cbc and chemistry reviewed PG Care Time/CCT Total # of Minutes Spent Total Time Spent with Patient: Total time spent is greater than 50% in coordination of care (as documented) at patient's floor/unit and/or counseling patient: Coding Level of Care Code 46557 SUB INP/OBS CARE 2/35MIN Diagnoses Hydroureteronephrosis N13.30 UTI (urinary tract infection) N39.0; R31.9 Hematuria presence: with hematuria Urinary tract infection type: site unspecified (2) UTI (urinary tract infection) Hematuria presence: with hematuria Urinary tract infection type: site unspeci fied Qualified Code(s): N39.0 - Urinary tract infection, site not specified; R31.9 - Hematuria, unspecified
[2024-03-01] MEDS: LACTATED RINGER'S 1,000 ML IV SCH (14:30)
[2024-03-01] MEDS ORDERED: ONDANSETRON INJ 2 MG/ML 2 ML VIAL IV PRN (15:01)
[2024-03-01] MEDS ORDERED: fentaNYL citrate PF 100 MCG/2 ML VIAL IV PRN (15:01)
[2024-03-01] MEDS ORDERED: ATROPINE SULFATE 0.1 MG/ML 10ML SYR IV PRN (15:01)
[2024-03-01] MEDS ORDERED: ePHEDrine sulfate 50 MG/ML AMP IV PRN (15:01)
--- NOTE | 2024-03-01 15:01 | Anesthesiology Consultation ---
Date of Service March 01, 2024 Assessment & Plan Chart Review Chart Review: entry level assistant manager initiated History Surgery Operation Date: 03/01/24 09:20 Proposed Procedures p Cystoscopy, Left Stent Placement, Possible Stone Treatment - Arsalan Higgins MD Height/Weight Height: 5 ft 1 in Weight: 93.1 kg Allergies Allergy/AdvReac Type Severity Reaction Status Date / Time No Known Allergies Allergy Verified 02/29/24 23:40 Medications Home Medications Medication Instructions Recorded Confirmed Last Taken albuterol sulfate 90 mcg/actuation 2 inh inhalation Q6H PRN Shortness 06/30/23 02/29/24 Unknown breath activated powder inhaler Of Breath Or Wheezing escitalopram oxalate 10 mg tablet 10 mg PO DAILY 06/30/23 02/29/24 Unknown levonorgestrel 21 mcg/24 hr (up to 21 mcg intrauterine DIRECTED 06/30/23 02/29/24 Unknown 8 years) 52 mg intrauterine device (Mirena) nitrofurantoin 100 mg PO .BID FOR 5 DAYS 02/29/24 02/29/24 02/29/24 17:00 monohydrate/macrocrystals 100 mg capsule phenazopyridine 200 mg tablet 4 mg PO .TID FOR 3 DAYS 02/29/24 02/29/24 02/29/24 17:00 Active Medications Generic Name Dose Route Start Last Admin Trade Name Freq PRN Reason Stop Dose Admin Sodium Chloride 1,000 mls @ 150 mls/hr 03/01/24 00:30 03/01/24 14:01 Nss IV 03/01/24 20:29 Infused .Q6H40M ADI Infusion Lactated Ringer's 1,000 mls @ 15 mls/hr 03/01/24 14:30 03/01/24 14:30 Lr IV 03/31/24 14:29 15 mls/hr .Q24H ADI Administration Ketorolac Tromethamine 15 mg 03/01/24 00:14 03/01/24 00:49 Ketorolac Tromethamine 15 Mg/Ml Vial IV 03/06/24 00:13 15 mg Q6H PRN Administration Pain Melatonin 3 mg 03/01/24 00:14 03/01/24 02:48 Melatonin 3 Mg Tab PO 03/31/24 00:13 3 mg HS PRN Administration Insomnia Ondansetron HCl 4 mg 03/01/24 00:14 03/01/24 00:49 Ondansetron Inj 2 Mg/Ml 2 Ml Vial IV 03/31/24 00:13 4 mg Q6H PRN Administration Nausea NPO Date Last Intake of Fluids: 02/29/24 Time Last Intake of Fluids: 21:00 Last Intake of Fluids Comment: sip of water 0300 w/med Date Last Intake of Solids: 02/29/24 Time Last Intake of Solids: 18:00 Past Medical History Medical History Anxiety PCOS (polycystic ovarian syndrome) Renal calculi Celiac disease Past Family History Family History Other Nabil-Danlos syndrome Past Surgical History Surgical History Ovarian torsion History of bilateral breast reduction surgery Social History Smoking Status: Never smoker Hx Alcohol Use: Yes alcohol intake frequency: holidays/special occasions only Hx Substance Use: No substance use type: does not use Physical Exam Vital Signs Last Vital Signs Temp 98.2 F 03/01/24 14:24 Pulse 72 03/01/24 14:24 Resp 18 03/01/24 14:24 BP 117/81 03/01/24 14:24 Pulse Ox 99 03/01/24 14:24 O2 Del Method Room Air 03/01/24 14:24 Testing Laboratory Results 03/01/24 07:57 03/01/24 07:57 Urine Color Dark Yellow 02/29/24 21:58 Urine Appearance Clear (Clear) 02/29/24 21:58 Urine pH 6.5 (4.5-7.5) 02/29/24 21:58 Ur Specific [place] 1.025 (1.000-1.030) 02/29/24 21:58 Urine Protein Negative (Negative) 02/29/24 21:58 Urine Glucose (UA) Negative (Negative) 02/29/24 21:58 Urine Ketones Trace (Negative) H 02/29/24 21:58 Urine Nitrite Positive (Negative) A 02/29/24 21:58 Ur Leukocyte Esterase Negative (Negative) 02/29/24 21:58 Urine WBC (Auto) 0-5 /hpf (0-5) 08/12/24 21:58 Urine RBC (Auto) 0-2 /hpf (0-2) 02/29/24 21:58 U Hyaline Cast (Auto) 0-2 /lpf (0-2) 02/29/24 21:58 U Epithel Cells (Auto) 0-2 /hpf (0-2) 02/29/24 21:58 Urine Bacteria (Auto) 1+ (None Seen) H 02/29/24 21:58 Urine RBC 11-20 /hpf (0-2) H 02/29/24 19:47 Urine WBC 6-10 /hpf (0-5) H 02/29/24 19:47 Ur Epithelial Cells 11-20 /hpf (0-2) H 02/29/24 19:47 02/29/24 21:58 Urine Culture - Preliminary Urine,Clean Catch No growth - Less than 1,000 colonies/mL, Final report to follow. 02/29/24 19:47 Urine Culture - Preliminary Urine,Clean Catch Pin-point growth present, reincubating.
[2024-03-01] MEDS ORDERED: MIDAZOLAM HCL 1 MG/ML 2ML VIAL ONE (16:05)
[2024-03-01] MEDS ORDERED: fentaNYL citrate PF 100 MCG/2 ML VIAL ONE (16:06)
[2024-03-01] MEDS ORDERED: ONDANSETRON INJ 2 MG/ML 2 ML VIAL ONE (16:07)
[2024-03-01] MEDS ORDERED: LIDOCAINE 2% 2 ML VIAL/AMP(20MG/ML) INFIL ONE (16:07)
[2024-03-01] MEDS ORDERED: PROPOFOL IV EMULSION 10 MG/ML 20 ML VIAL IV ONE ×2 (16:07→16:34)
--- NOTE | 2024-03-01 16:58 | Operative Report ---
PG Post Operative Report Pre & Post Diagnosis Operation Date: 03/01/24 09:20 Pre-Op Diagnosis: (1) Urinary tract obstruction by kidney stone: (2) Hydroureteronephrosis: (3) UTI (urinary tract infection): Post-Op Diagnosis: (1) Urinary tract obstruction by kidney stone: (2) Hydroureteronephrosis: (3) UTI (urinary tract infection): I identified the patient and participated in the time-out.: Yes Procedure Operation Date: 03/01/24 09:20 Actual Procedures p Cystoscopy, Left Stent Placement(Left) - Arsalan Higgins MD Surgeon Arsalan Higgins MD Coding Compliance Specialist none Estimated Blood Loss 0 Findings Consistent with Post-Op Diagnosis Distal left ureteral calculus Specimens Left ureteral stone for chemical analysis Description of Procedure The patient was identified in the preoperative holding area, appropriate informed consents were reviewed and completed and the patient was transferred to the operative suite. Upon arrival, appropriate antibiotics and anesthesia were administered and the patient was placed in dorsal lithotomy position and prepped and draped in sterile fashion. To be in the case I passed a 21 Cuban cystoscope with 30 degree lens. Inspection revealed a healthy appearing bladder with ureteral orifices in orthotopic position. Her left orifice had some erythema and edema around it consistent with an extremely distal stone. I turned my attention to this UO and attempted to cannulate it with a sensor wire but the stone was impacted just at the UVJ. I was ultimately able to navigate the wire beyond the stone which pushed the stone slightly retrograde. I then entered the ureter alongside the wire with a semirigid ureteroscope and I could visualize the stone. The stone was somewhat oval in shape and initially was wedged in a sideways position. After was turned I thought that it would likely be able to be basketed out of the ureter without difficulty and I used a basket grasper to control the stone and I easily withdrew it. There is no trauma to the ureter. I placed a 6 Cuban by 24 cm double-J stent with a string left attached. This string was taped to her right inner thigh. There was good curl in the kidney as well as the bladder. The case was concluded and she was reversed of anesthesia and taken to the recovery room in stable condition. There were no complications. I attest to the content of the Intraoperative Record and any orders documented therein. Any exceptions are noted below.
--- NOTE | 2024-03-01 17:01 | Fluoroscopy Report ---
FL KUB CLINICAL HISTORY: LEFT STENT COMPARISON STUDY: None. FLUOROSCOPY TIME: 3 seconds FLUOROSCOPY IMAGES: 2 Ka,r: 1.0 mGy FINDINGS: A left ureteral stent is noted and is likely in good position. An intrauterine device is se en within the mid pelvis. IMPRESSION: Fluoroscopic assistance as above. ACT 112: Negative or not required by law. Electronically signed by: Suresh Terrazas M.D. 03/01/2024 4:59 PM
--- NOTE | 2024-03-01 17:07 | Anesthesiology Progress Note ---
Date of Service March 01, 2024 Anesthesia Post Procedure Vital Signs Vital Signs: Temp Pulse Pulse Pulse Resp BP BP 03/01/24 17:05 97.3 F L 61 14 105/73 03/01/24 16:55 69 19 113/68 03/01/24 16:47 97.3 F L 79 16 112/67 03/01/24 14:24 98.2 F 72 18 117/81 03/01/24 07:00 97.9 F 73 20 111/69 03/01/24 02:56 98.1 F 68 18 144/95 H 03/01/24 02:39 98.1 F 68 18 144/95 H 03/01/24 02:00 73 16 147/96 H 03/01/24 00:12 71 16 141/95 H 02/29/24 23:10 78 18 02/29/24 21:35 93 H 18 142/96 H 02/29/24 20:51 81 02/29/24 19:27 97.3 F L 93 H 18 154/88 H Pulse Ox O2 Del Method 03/01/24 17:05 97 Room Air 03/01/24 16:55 98 Room Air 03/01/24 16:47 97 Room Air 03/01/24 14:24 99 Room Air 03/01/24 07:00 97 Room Air 03/01/24 02:56 97 Room Air 03/01/24 02:39 97 Room Air 03/01/24 02:00 95 Room Air 03/01/24 00:12 99 Room Air 02/29/24 23:10 97 Room Air 02/29/24 21:35 98 Room Air 02/29/24 20:51 98 Room Air 02/29/24 19:27 95 Room Air Pain Intensity Left Abdomen: Pain Intensity: 4 Transfer of Care Handoff Completed per policy Notes Mental Status: alert / awake / arousable and participated in evaluation Patient Amnestic to Procedure: Yes Nausea / Vomiting: adequately controlled Pain: adequately controlled Airway Patency, RR, SpO2: stable & adequate BP & HR: stable & adequate Hydration State: stable & adequate Anesthetic Complications: no major complications apparent and Pt Satisfied with anesthetic care
[2024-03-01] MEDS: HYDROmorphone INJ 0.5 MG/0.5 ML SYR IV PRN (20:28)
[2024-03-01] MEDS: ESCITALOPRAM OXALATE 10 MG TAB PO SCH (21:34)
[2024-03-01] MEDS: cefTRIAXone SODIUM 2,000 MG/50 ML BAG IV SCH (21:35)
[2024-03-01] MEDS ORDERED: cefTRIAXone SODIUM 1,000 MG/50 ML BAG IV SCH (23:00)
[2024-03-02 04:30] VITALS: RESP 16; O2SAT 97
[2024-03-02 07:20] VITALS: BP 103/68; PULSE 62; TEMP 97.9
[2024-03-02 07:21] LABS: Hematocrit (blood only) 35.5 % (37.0-47.0); Hemoglobin 11.7 g/dl (12.0-16.0); Mean Corpuscular Hemoglobin 30.2 pg (25.0-34.0); Mean Corpuscular Volume 91.7 fL (80.0-100.0); Mean Platelet Volume 10.3 fL (9.4-12.4); Platelet Count 305 K/uL (130-400); RDW Coefficient of Variation 12.4 % (11.5-14.5); RDW Standard Deviation 41.7 fL (36.4-46.3); Red Blood Count 3.87 M/uL (4.20-5.40); White Blood Count 9.53 K/ul (4.8-10.8)
[2024-03-02 07:46] LABS: BUN Creatinine Ratio 9.7 (10-20); Calcium 8.5 mg/dl (8.6-10.3); Creatinine Clr Calc Pharmacy 124.3 ml/min; Est GFR (African American) 134.9 ml/min; Est GFR (Non-African American) 116.4 ml/min; Potassium 4.5 mmol/L (3.5-5.1)
--- NOTE | 2024-03-02 08:12 | Urology Progress Note ---
Date of Service March 02, 2024 Assessment & Plan (1) Urinary tract obstruction by kidney stone: (2) Hydroureteronephrosis: Plan: POD #1 s/p cystoscopy, stone extraction and left ureteral stent placement Patient subjectively doing well Afebrile with stable vitals Labs today - creatinine 0.72, WBC 9.53, Hgb 11.7 Urine culture prelim with no growth Tolerating stent with minimal bother Stent on a tether, will maintain at discharge Okay to discharge from perspective when medically stable Can provide Tamsulosin, Pyridium, and analgesia as needed for stent management Will arrange outpatient f/u for stent removal later this week will sign off, please contact us with any further questions or concerns Admission and Anticipated Discharge Date Admission Date: March 01, 2024 Subjective No acute issues overnight. Reports minor bother from stent. No fever or chills. Voiding spontaneously without difficulty. No nausea or vomiting. Review of Systems Constitutional: as per Subjective / HPI Genitourinary: as per Subjective / HPI Physical Exam Constitutional: well developed and well nourished; no acute distress Respiratory: normal respiratory effort; no respiratory distress and no labored breathing Gastrointestinal (Abdomen): Inspection/Auscultation: abdomen normal to inspection Musculoskeletal: Head/Neck/Chest: normocephalic Neurologic: moves all extremities and awake Psychiatric: Orientation: alert and oriented x 3 Results & Data Vital Signs (Past 12 Hours) Vital Signs Temp Pulse Resp BP Pulse Ox O2 Del Method 03/02/24 07:17 36.6 C 62 16 103/68 97 Room Air 03/02/24 04:30 36.8 C 64 16 103/74 97 Room Air 03/01/24 20:27 36.7 C 71 18 125/84 95 Room Air PG Care Time/CCT Total # of Minutes Spent Total Time Spent with Patient: Total time spent is greater than 50% in coordination of care (as documented) at patient's floor/unit and/or counseling patient: Coding Level of Care Code 20296 SUB INP/OBS CARE 125MIN Diagnoses Urinary tract obstruction by kidney stone N20.0; N13.8 Hydroureteronephrosis N13.30
--- NOTE | 2024-03-02 09:34 | Discharge Summary ---
Discharge Summary Date of Service March 02, 2024 Principal Dx & Hospital Course #1 = Principal Diagnosis (1) Hydroureteronephrosis: Pt is a 23 yo female with PMH of asthma, PCOS, celiac disease, and anxiety presenting to the ER d/t flank pain. Left hydroureteronephrosis secondary to obstructing nephrolithiasis - pt with hx of kidney stones requiring stent placement - CTAP showed 4mm obstructing left UVJ stone - consulted urology - S/p cystoscopy with left stent placement with Dr. Higgins on 03/01 - stable for discharge with Pyridium, Flomax and analgesics - output follow up for stent removal Stone analysis pending - WBC on admission elevated to 16.1, pt tachycardic in the 90s upon arrival meeting SIRS/sepsis criteria - s/p sepsis fluid bolus - pt only received one dose of macrobid prior to arrival, UC without growth, noninfectious appearance during procedure. Will not continue antibiotics at discharge. Plan Chronic stable medical conditions: * anxiety - continue lexapro Dispo: discharge to home today with urology follow Notes For Next Care Provider stent to be removed outpatient by urology Medication Changes From Visit Pyridium as needed for bladder pain Flomax nightly while stent is in place Tramadol as needed for pain Admission HPI Per Admitting Provider Pt is a 23 yo female with PMH of asthma, PCOS, celiac disease, and anxiety pres enting to the ER d/t flank pain. Pt notes she had UTI symptoms that began on Thursday with pelvic pressure and pain with urination. These symptoms continued until Thursday when she also developed urinary frequency. Today, she noted some left sided back and groin pain which prompted her to seek care at [facility]. She was prescribed nitrofurantoin and pyridium for a presumed UTI. In the hours after being assessed at [facility], her abdominal/groin pain worsened to the point of needing to seek care at the ER. She notes she has a hx of kidney stones ~6-7 years ago. At that time, she had multiple (upwards of possibly 12 but pt unsure of exact number and size) right sided kidney stones which required stent placement. She has not had any symptomatic kidney stones since. No one else in her family has issues with kidney stones. In the ER, pt was given 2L NS, 10 mg toradol, 4 mg zofran, 4mg morphine x2, and ceftriaxone x1. Discharge Exam General: NAD, VS as above Resp: normal respiratory effort, lungs clear to auscultation CV: RRR, no murmur, Abd: soft, normal bowel sounds, non tender, no hepatosplenomegaly Extremities: Moves all extremities, no edema Neuro: A&O x3, Skin: intact, no lesions noted Hospital Stay Data Consultations 02/29/24 23:12 ED Decision to Admit Stat 03/01/24 02:27 Consult Urology Routine Procedures Performed Operation Date: 03/01/24 09:20 Actual Procedures p Cystoscopy, Left Stent Placement(Left) - Arsalan Higgins MD Diagnostic Imagining Performed Abdomen/Pelvis CT 02/29/24 20:14 Exam(s): CT ABDOMEN + PELVIS With Contrast IV Amt: 93 ML OPTIRAY 320 EXAM: CT Abdomen and Pelvis With Intravenous Contrast CLINICAL HISTORY: Reason for exam: flank pain. TECHNIQUE: Axial computed tomography images of the abdomen and pelvis with intravenous contrast. CTDI is 28.03 mGy and DLP is 1409 mGy-cm. Automated exposure control was utilized for the study. A dose lowering technique was utilized adhering to the principles of ALARA. CONTRAST: Patient received 93 ML OPTIRAY 320 of IV contrast COMPARISON: No relevant prior studies available. FINDINGS: Lung bases: Unremarkable. No mass. No consolidation. ABDOMEN: Liver: Unremarkable. No mass. Gallbladder and bile ducts: Unremarkable. No calcified stones. No ductal dilation. Pancreas: Unremarkable. No mass. No ductal dilation. Spleen: Unremarkable. No splenomegaly. Adrenals: Unremarkable. No mass. Kidneys and ureters: Obstructing 4 mm left UVJ stone causing mild upstream hydroureteronephrosis. Right kidney and collecting system are normal. Stomach and bowel: Unremarkable. No obstruction. No mucosal thickening. PELVIS: Appendix: Normal appendix. Bladder: Unremarkable. No mass. Reproductive: IUD in the uterus. ABDOMEN and PELVIS: Intraperitoneal space: Unremarkable. No free air, significant free fluid, or fluid collection. Bones/joints: No acute fracture. No dislocation. Soft tissues: Unremarkable. Vasculature: Unremarkable. No abdominal aortic aneurysm. Lymph nodes: Unremarkable. No enlarged lymph nodes. IMPRESSION: Obstructing 4 mm left UVJ stone causing mild upstream hydroureteronephrosis. Electronically signed by: Richard Jasmine M.D. 02/29/24 23:16 PM Abdomen Fluoroscopy 03/01/24 00:00 FL KUB CLINICAL HISTORY: LEFT STENT COMPARISON STUDY: None. FLUOROSCOPY TIME: 3 seconds FLUOROSCOPY IMAGES: 2 Ka,r: 1.0 mGy FINDINGS: A left ureteral stent is noted and is likely in good position. An intrauterine device is seen within the mid pelvis. IMPRESSION: Fluoroscopic assistance as above. ACT 112: Negative or not required by law. Electronically signed by: Suresh Terrazas M.D. 03/01/2024 4:59 PM Pending Results Patient Have Any Pending Studies at Discharge: Yes (final urine culture, stone analysis ) Discharge Instructions Given to Patient (Per Discharging Provider) Ms. Castillo, you were hospitalized after having abdominal/flank pain that was found to be a kidney stone. You were taken to the OR with Dr. Higgins and had a urinary stent placed, and the stone was removed. The stent is to remain in place until you follow-up with urology. I have sent in the following prescriptions: * Flomaxtake 1 tablet every night while the stent is in place, this is to help with passage through the stent and minimizing pain * Pyridiumtake as needed for pain with urination * Ultram this is a pain medication that you can take if your pain is not controlled with Tylenol and ibuprofen (follow the instructions on the bottle) No changes to your home medication. Recommend follow-up with your PCP in 7 to 10 days after hospitalization. Your urine culture did not show signs of infection. If you develop fever chills , urinary burning frequency urgency please call your PCP or the urology team Thank you for allowing us to participate in your care, Teresa Schultz PA-C Total Time Total Time Spent Total Time Spent (In Minutes): Time spend day of discharge 31 minutes including direct patient care, medication reconciliation, documentation, review of labs and images, and coordination of care. Coding Level of Care Code 45096 INP/OBS DISCH >30 MIN Diagnoses Hydroureteronephrosis N13.30
[2024-03-02] MEDS: oxyCODONE HCL IR 5 MG TAB (IMMEDIATE RELEASE) PO PRN (10:15)
== END 2024-03-02 13:21 | disposition home or self-care (01) | DRG 854 ==
LOC: ED 19:21 → SUATTDRO 03-01 00:14 → 3N 03-01 00:14